=== PATIENT | female | born 1970 | race Caucasian/White ===

== ENCOUNTER 2023-12-09 13:33 | Outpatient (CLI) | payer MEDICAID, SELFPAY ==
--- NOTE | 2023-12-09 13:40 | MR_ITS ---
WS: [id number] MRI CERVICAL SPINE NONCONTRAST HISTORY: CERVICALGIA COMPARISON: None available. Technique: Multiplanar, multisequence noncontrast imaging of the cervical spine. Mild curvature cervical spine. Disc spaces are very mildly narrowed and desiccated. Signal within the cervical cord is normal. Visualized posterior fossa is unremarkable. Craniocervical junction, C1 and C2 relationship, odontoid process and soft tissues are normal. C2-C3: Shallow central disc protrusion. Mild facet arthritis. C3-C4: Mild osteophytic ridging and a central disc protrusion. Mild bilateral foraminal stenosis due to osteophyte disease. C4-C5: Very shallow central disc protrusion with bilateral foraminal osteophytes. Minimal RIGHT sebastian inal narrowing. C5-C6: Moderate LEFT paracentral disc osteophyte complex. Significant encroachment upon the LEFT late ral thecal sac and foramen. Smaller bilateral disc osteophyte complexes. Moderate to severe central w ith moderate bilateral foraminal stenosis. C6-C7: Small central disc protrusion with bilateral foraminal osteophytes. No stenosis. C7-T1: Normal. Paraspinal soft tissue are normal. MR/MR cervical spin wo con* [id number] IMPRESSION: 1. C5-6: Moderate LEFT paracentral disc osteophyte complex with displacement o f the LEFT lateral thecal sac. 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 2. C3-4: Mild bilateral foraminal stenosis with a small central disc protrusio n. 3. C4-5: Shallow central disc protrusion with bilateral foraminal osteophytes. Mild RIGHT foraminal narrowing. 4. Small central disc protrusions at C2-3 and C6-7. Mild central stenosis at C 6-7.
== END 2023-12-09 13:34 | disposition home or self-care (01) ==
LOC: RAD 13:33
PROVIDERS: Visit Provider Family Medicine
DX: M54.2 Cervicalgia (principal)
CPT/HCPCS: 72141